=== PATIENT | male | born 1990 | race Hispanic/Latino ===

== ENCOUNTER → 2024-08-12 | Day surgery (SDC) | payer OTHER ==
[~2024-08-12] MED LIST: ACETAMINOPHEN 1000 MG/100 ML 100 ML IV ONE; AMOXICILLIN PO; BACTRIM DS TAB1 EACH PO; DEXAMETHASONE SOD PHOS INJ 4 MG/ML SDV ONE; FENTANYL CITRATE/PF 100MCG/2 ML INJ ONE; FERROUS SULFAT325 MG PO; HYDROCODON-ACE1 EA11 PO; HYDROCODONE/APAP 7.5MG-325MG 1 EA TAB ONE; HYDROMORPHONE 1MG/1ML INJ ONE; IBUPROFEN800 MG PO; LIDOCAINE HCL 2% LOCAL INJ 5 ML SDV VIAL INJ ONE; MIDAZOLAM HCL 2 MG/2 ML VIAL ONE; ONDANSETRON HCL INJ 2MG/ML 2ML 2 MG/ML VIAL ONE; PROPOFOL IV EMULSION 10 MG/ML 20 ML VIAL ONE; ROCURONIUM BROMIDE 1 ML IV ONE; SEVOFLURANE INHAL SOLN 250 ML PEN BTL ONE; SUCCINYLCHOLINE CHLORIDE 20 MG/ML 10ML VIAL ONE; SUGAMMADEX SODIUM 200 MG/2 ML VIAL IV ONE; VENTOLIN HFA18 GM INH; VITAMIN C1000 MG PO; ZESTRIL10 MG PO
[2024-08-12 11:46] LABS: BASOPHILS # (AUTO) 0.1 (0.0-0.1); BASOPHILS % 1.3 % (0.0-1.0); EOSINOPHILS # (AUTO) 0.4 (0.0-0.4); EOSINOPHILS % 5.7 % (0.0-6.0); LYMPHOCYTES # (AUTO) 2.2 (1.0-3.2); LYMPHOCYTES % 34.6 % (18.0-39.1); MEAN CORPUSCULAR HEMOGLOBIN 22.9 pg (28-32); MEAN CORPUSCULAR HGB CONC 29.7 g/dL (31-35); MEAN CORPUSCULAR VOLUME 77.1 fL (81-99); MONOCYTES # (AUTO) 0.5 (0.2-0.8); MONOCYTES % 7.6 % (4.4-11.3); NEUTROPHILS # (AUTO) 3.2 (2.1-6.9); PLATELET COUNT 347 x10e3/uL (140-360); WHITE BLOOD COUNT 6.35 x10e3/uL (4.8-10.8)
[2024-08-12] MEDS: CEFAZOLIN SODIUM 2 GM ONE (11:56)
[2024-08-12] MEDS: LACTATED RINGER'S 1,000 ML ONE (11:56)
[2024-08-12 14:35] VITALS: TEMP 97.7
[2024-08-12] MEDS: HYDROMORPHONE 1MG/1ML INJ IV ONE ×2 (14:50→14:55)
[2024-08-12] MEDS: FENTANYL CITRATE/PF 100MCG/2 ML INJ IV ONE ×2 (15:15→15:20)
[2024-08-12] MEDS: HYDROCODONE/APAP 7.5MG-325MG 1 EA TAB PO ONE (15:55)
[2024-08-12 16:05] VITALS: BP 151/91; PULSE 74; RESP 11; O2SAT 97
== END | disposition home or self-care (01) ==
LOC: OR 11:00
PROVIDERS: ATTEND Surgery
DX: K40.30 Unilateral inguinal hernia, with obstruction, without gangrene, not specified as recurrent (principal); K43.6 Other and unspecified ventral hernia with obstruction, without gangrene; I10 Essential (primary) hypertension; E66.3 Overweight; Z68.36 Body mass index [BMI] 36.0-36.9, adult; J45.909 Unspecified asthma, uncomplicated; F17.210 Nicotine dependence, cigarettes, uncomplicated; Z71.6 Tobacco abuse counseling; F41.9 Anxiety disorder, unspecified; Z79.899 Other long term (current) drug therapy
CPT/HCPCS: 36415; 49507; 49592; 85025; 88304; 93005; C1781; J0131; J0330; J1100; J1171; J2003; J2250; J2405; J2704; J3010; J7121